=== PATIENT | male | born 1990 | race African-American/Black ===

== ENCOUNTER 2018-05-31 14:59 | Emergency (ER) | payer MEDICAID, OTHER ==
[~2018-05-31] VITALS: Ht 185.4 cm; Wt 81.6 kg
[~2018-05-31 14:59] MED LIST: DM/P295L17 PO
--- NOTE | 2018-05-31 15:27 | NUR ---
Patient discharged to home in stable conditon. Written and verbal after care instructions given. Patient verbalizes understanding of instructions.
== END 2018-05-31 15:43 | disposition home or self-care (01) ==
LOC: ER 14:59
DX: M25.562 Pain in left knee (principal); Z79.899 Other long term (current) drug therapy
CPT/HCPCS: A4663

== ENCOUNTER 2020-12-27 12:12 | Emergency (ER) | payer OTHER ==
[~2020-12-27] VITALS: Ht 182.9 cm; Wt 81.6 kg
[2020-12-27] MEDS ORDERED: PRED20TA PO (13:17)
--- NOTE | 2020-12-27 13:21 | NUR ---
Patient discharged to home in stable condition. Written and verbal after care instructions given. Patient verbalizes understanding of instructions. Stressed follow up or return to ER for worsening s/s.
== END 2020-12-27 13:26 | disposition home or self-care (01) ==
LOC: ER 12:14
DX: S33.5XXA Sprain of ligaments of lumbar spine, initial encounter (principal); X58.XXXA Exposure to other specified factors, initial encounter; Y92.89 Other specified places as the place of occurrence of the external cause; J45.909 Unspecified asthma, uncomplicated
CPT/HCPCS: A4663

== ENCOUNTER 2021-04-25 15:57 | Emergency (ER) | payer OTHER ==
[~2021-04-25] VITALS: Ht 185.4 cm; Wt 81.6 kg
[~2021-04-25 15:57] MED LIST changes: +PRED20TA PO
[2021-04-25] MEDS ORDERED: ONDANSETRON ODT 4 MG TAB.RAPDIS SL ONE (19:00)
[2021-04-25] MEDS ORDERED: DICYCLOMINE HCL LIQ 10 MG/5 ML UDC PO ONE (19:00)
[2021-04-25] MEDS ORDERED: DIPHENOXYLATE HCL/ATROP SULF TABLET PO ONE (19:00)
[2021-04-25] MEDS ORDERED: DICY20TA11 PO (19:05)
[2021-04-25] MEDS ORDERED: DIPH1TAB PO (19:05)
[2021-04-25] MEDS ORDERED: ONDA4TAB5 PO (19:05)
[2021-04-25] MEDS ORDERED: ONDANSETRON ODT 4 MG TAB.RAPDIS ONE (19:18)
[2021-04-25] MEDS ORDERED: DIPHENOXYLATE HCL/ATROP SULF TABLET ONE (19:18)
[2021-04-25] MEDS ORDERED: DICYCLOMINE HCL LIQ 10 MG/5 ML UDC ONE ×2 (19:19→19:20)
[2021-04-25] MEDS ORDERED: HYDR25SU13 RC (19:21)
--- NOTE | 2021-04-25 19:38 | NUR ---
Patient discharged to home in stable condition. Written and verbal after care instructions given. Patient verbalizes understanding of instructions. Stressed follow up or return to ER for worsening s/s. Patient out of ER with steady gait, no acute signs of distress, VSS, all belongings taken.
[2021-04-25 19:39] VITALS: BP 124/63
== END 2021-04-25 19:39 | disposition home or self-care (01) ==
LOC: ER 15:59
DX: R19.7 Diarrhea, unspecified (principal); Z20.822 Contact with and (suspected) exposure to COVID-19; Z87.09 Personal history of other diseases of the respiratory system; K64.4 Residual hemorrhoidal skin tags
CPT/HCPCS: A4663; Q0162

== ENCOUNTER 2022-03-04 14:08 | Emergency (ER) | payer OTHER ==
[~2022-03-04] VITALS: Ht 185.4 cm; Wt 81.6 kg
[~2022-03-04 14:08] MED LIST changes: +DICY20TA11 PO; +DIPH1TAB PO; +HYDR25SU13 RC; +ONDA4TAB5 PO
--- NOTE | 2022-03-04 14:32 | NUR ---
patient resting comfortably in bed, waiting to see MD.
[2022-03-04] MEDS ORDERED: GUAI-671 PO (14:33)
== END 2022-03-04 14:52 | disposition home or self-care (01) ==
LOC: ER 14:08
DX: R05.9 Cough, unspecified (principal); J02.9 Acute pharyngitis, unspecified
CPT/HCPCS: A4663

== ENCOUNTER 2022-10-08 19:33 | Emergency (ER) | payer OTHER ==
[~2022-10-08] VITALS: Ht 182.9 cm; Wt 81.6 kg
[~2022-10-08 19:33] MED LIST changes: +GUAI-671 PO
--- NOTE | 2022-10-08 20:12 | NUR ---
Pt is noted alert, responsive as he came in C/O Diarrhea [id number] from food poisoning . Pt care continue as awaits MD orders.
--- NOTE | 2022-10-08 20:39 | NUR ---
Pt said he can not give stool samples for now.
[2022-10-08 20:50] LABS: HEMATOCRIT 41.6 % (36.7-47.1); MEAN CORPUSCULAR HEMOGLOBIN 27.5 uug (23.8-33.4); MEAN CORPUSCULAR VOLUME 85.7 fL (73.0-96.2); PLATELET COUNT (AUTO) 217 K/uL (152-348)
[2022-10-08 20:56] LABS: MAGNESIUM 1.9 mg/dL (1.8-2.4); POTASSIUM 3.9 mmol/L (3.5-5.1)
[2022-10-08] MEDS ORDERED: DIPH1TAB PO (22:11)
--- NOTE | 2022-10-08 22:16 | NUR ---
Pt is noted off the unit stable as he is been discharge to home with all discharged instructions given .
[2022-10-08 22:18] VITALS: BP 122/84
== END 2022-10-08 22:19 | disposition home or self-care (01) ==
LOC: ER 19:33
DX: R19.7 Diarrhea, unspecified (principal); Z90.49 Acquired absence of other specified parts of digestive tract; Z79.899 Other long term (current) drug therapy; Z79.2 Long term (current) use of antibiotics
CPT/HCPCS: 36415; 83735; 85025; A4663